=== PATIENT | male | born 1955 | race Caucasian/White ===

== ENCOUNTER 2016-09-04 14:00 | Emergency (ER) | payer MEDICARE, MEDICAID ==
[2016-09-04 14:28] LABS: BASOPHILS 0.1 % (0.0-2.0); EOSINOPHILS 0.2 % (0-7); HEMATOCRIT 42.2 % (42.0-54.0); HEMOGLOBIN 14.3 g/dL (13.5-17.5); IMMATURE GRANULOCYTES 0.2 % (0-5); MCH 31.6 pg (26.0-34.0); MCHC 33.9 g/dL (31.0-37.0); MCV 93.4 fL (80.0-100.0); MEAN PLATELET VOLUME 11.4 fL (7.4-10.4); MONOCYTES 12.2 % (2-11); NEUTROPHILS 61.3 % (40-80); PLATELET COUNT 240 10x3/uL (130-400); RBC 4.52 10x6/uL (4.20-6.10); WBC 10.7 10x3/uL (4.8-10.8)
[2016-09-04 14:49] LABS: ALBUMIN 4.5 g/dL (3.4-5.0); ALKALINE PHOSPHATASE 118 U/L (46-116); ALT (SGPT) 28 U/L (10-68); BILIRUBIN - TOTAL 0.51 mg/dL (0.2-1.3); CALC OSMOLALITY 279 mosm/kg (275-300); CALCIUM 9.3 mg/dL (8.5-10.1); CARBON DIOXIDE 28.8 mmol/L (21.0-32.0); CHLORIDE - SERUM 100 mmol/L (98-107); GLUCOSE 102 mg/dL (74-106); POTASSIUM - SERUM 4.4 mmol/L (3.5-5.1); PROTEIN - SERUM 7.6 g/dL (6.4-8.2); SODIUM 140 mmol/L (136-145); UREA NITROGEN 16 mg/dL (7-18); eGFR NON AFRICAN AMERICAN 81 mL/min (90-120)
== END 2016-09-04 17:18 | disposition home or self-care (01) ==
LOC: D.ER 14:00
PROVIDERS: Emergency Medicine
DX: J44.1 Chronic obstructive pulmonary disease with (acute) exacerbation (principal); J01.90 Acute sinusitis, unspecified; E11.9 Type 2 diabetes mellitus without complications; F17.200 Nicotine dependence, unspecified, uncomplicated

== ENCOUNTER 2017-08-13 21:35 | Emergency (ER) | payer OTHER, MEDICAID ==
[2017-08-13 22:15] LABS: BASOPHILS 0.1 % (0-2); EOSINOPHILS 2.1 % (0-7); HEMATOCRIT 41.8 % (42.0-54.0); HEMOGLOBIN 14.1 g/dL (13.5-17.5); IMMATURE GRANULOCYTES 0.8 % (0-5); LYMPHOCYTES 28.3 % (15-50); MCHC 33.7 g/dL (31.0-37.0); MCV 91.9 fL (80.0-100.0); MEAN PLATELET VOLUME 11.2 fL (7.4-10.4); MONOCYTES 8.8 % (2-11); NEUTROPHILS 59.9 % (40-80); PLATELET COUNT 222 10x3/uL (130-400); RBC 4.55 10x6/uL (4.20-6.10); RDW 14.2 % (11.5-14.5); WBC 7.6 10x3/uL (4.8-10.8)
[2017-08-13 22:45] LABS: ALBUMIN 3.9 g/dL (3.4-5.0); ANION GAP 15.5 mmol/L (8-16); BILIRUBIN - TOTAL 0.23 mg/dL (0.2-1.3); CARBON DIOXIDE 24.8 mmol/L (21.0-32.0); CREATININE - SERUM 1.1 mg/dL (0.6-1.3); POTASSIUM - SERUM 4.3 mmol/L (3.5-5.1); PROTEIN - SERUM 7.4 g/dL (6.4-8.2)
[2017-08-13 23:09] LABS: CREATINE KINASE 79 UL (21-232); LIPASE 195 U/L (73-393); PRO BNP 41 pg/mL (0-125)
[2017-08-13 23:10] LABS: TROPONIN-I < 0.017 ng/mL (0.000-0.060)
[2017-08-14 00:16] LABS: APPEARANCE CLEAR (CLEAR); BILIRUBIN NEGATIVE (NEGATIVE); COLOR YELLOW (YELLOW); GLUCOSE 500 mg/dL (NEGATIVE); KETONE NEGATIVE (NEGATIVE); NITRITE NEGATIVE (NEGATIVE); PROTEIN NEGATIVE (NEGATIVE); UROBILINOGEN NORMAL (NORMAL)
== END 2017-08-14 01:10 | disposition home or self-care (01) ==
LOC: D.ER 21:35
PROVIDERS: Family Medicine
DX: R42 Dizziness and giddiness (principal); J44.9 Chronic obstructive pulmonary disease, unspecified; E11.9 Type 2 diabetes mellitus without complications; I44.4 Left anterior fascicular block

== ENCOUNTER 2018-08-23 08:27 | Outpatient (CLI) | payer OTHER, MEDICAID ==
[~2018-08-23] VITALS: Ht 170.2 cm; Wt 69.1 kg
--- NOTE | ~2018-08-23 | HEMODYNAMI ---
PATIENT:CHRISTOPHER COSTA MEDICAL RECORD: [id number] : 55 LOCATION:DHermanCAT ADMISSION DATE: 08/23/18 Generatedon:08/23/201810:27 Patient name: CHRISTOPHER COSTA Patient #: [id number] SSN: : 1955 Date of study: 08/23/2018 Page: Of Hemodynamic Procedure Report Patient Data Patient Demographics Procedure consent was obtained First Name: CHRISTOPHER Gender: Male Last Name: IGOR : 1955 Middle Initial: GUS Age: 63 year(s) Patient #: [id number] Race: Unknown Additional ID: [id number] Contact details Address: [address] [place] [address] State: [place] City: [place] Zip code: [address] Past Medical History Allergies Allergen Reaction Date Comments Reported Other allergy 08/23/2018 MAILE GODOY TALWIN Admission Admission Data Admission Date: 08/23/2018 Admission Time: 8:27 Admit Source: Other Height (in.): 67 BSA: 1.82 (m2) Height (cm.): 170.18 BMI: 24.43 (kg/m2) Weight (lbs.): 156 Weight (kg.): 70.76 Lab Results Lab Result Date: 08/23/2018 Lab Result Time: 0:00 Biochemistry Name Units Result Min Max BUN mg/dl 23 --(----)-* 7 18 Creatinine mg/dl 1.1 --(--*-)-- 0.6 1.3 CBC Name Units Result Min Max Hemoglobin g/dl 15.1 --(-*--)-- 13.5 17.5 Procedure Procedure Types Cath Procedure Diagnostic Procedure [facility] w/Coronaries PCI Procedure Coronary Stent Coronary Stent Initial Procedure Description Procedure Date Procedure Date: 08/23/2018 Procedure Start Time: 10:13 Procedure End Time: 10:24 Procedure Staff Name Function Mark Lujan MD Performing Physician Yuli Avila RT Monitor Mayank Adler RT Scrub Eugenio Multani RT Business Technology Professor Alan Iglesias RN Nurse Procedure Data Cath Procedure Fluoroscopy Diagnostic fluoroscopy Total fluoroscopy Time: 1.9 time: 1.9 min min Diagnostic fluoroscopy Total fluoroscopy dose: 367 dose: 367 mGy mGy Contrast Material Contrast Material Type Amount (ml) Isovue 300 81 Entry Location Entry Primary Successful Side Size Upsize Upsize Entry Closure Rodriges ccessful Closure Location (Fr) 1 (Fr) 2 (Fr) Remarks Device Remarks Radial Right 6 Fr Mechanical artery Short Compression Estimated blood loss: 10 ml Diagnostic catheters Device Type Used For End Catheter Placement DIAGNOSTIC [place] 110cm 5 Procedure Fr catheter ([id number]) Procedure Complications No complications Procedure Medications Medication Administration Route Dosage Radial Cocktail I.A. 1 syringe (Verapomil 2mg/Nitro 400mcg/Heparin 1500units) Oxygen etCO2 Nasal cannula 2 l/min Lidocaine 2% added to field 20 Heparin Flush Bag added to field 2 bags (1000units/500ml NS) 0.9% NaCl I.V. 100 ml/hr Versed I.V. 2 mg Fentanyl I.V. 100 mcg Versed I.V. 1 mg Fentanyl I.V. 100 mcg Heparin Bolus I.V. 4000 units Integrilin (Bolus I.V. 6.2 ml 2mg/ml) Plavix P.O. 600 mg Hemodynamics Rest BSA: 1.82 (m2) O2 Consumption: Estimated: 212.07 (ml/min) O2 Consumption indexed : Estimated:116.52 (ml/min/m) Heart Rate: 69 (bpm) Snapshots Pre Cath Intra NCS Post Cath Vital Signs Time Heart Resp SPO2 etCO2 NIBP (mmHg) Rhythm Pain Sedation Rate (ipm) (%) (mmHg) Status Level (bpm) 10:05:39 71 20 97 36.4 110/59(80) NSR 0 (11) 10(A) , No pain 10:09:49 76 12 97 37.2 119/53(81) NSR 0 (11) 10(A) , No pain 10:13:59 72 20 96 44.8 127/69(104) NSR 0 (11) 10(A) , No pain 10:18:17 83 12 96 104/50(74) NSR 0 (11) 9(A) , No pain 10:22:23 84 16 96 105/63(81) NSR 0 (11) 9(A) , No pain 10:26:14 85 16 95 102/56(78) NSR 0 (11) 10(A) , No pain Medications Time Medication Route Dose Verified Delivered Reason Not es Effectiveness by by 10:05:23 Oxygen etCO2 2 l/min Mark Buffie used for Nasal Tai Iglesias RN procedure cannula 10:05:28 Lidocaine 2% added 20ml Mark Buffie for local to vial Tai Iglesias RN anesthetic field 10:05:34 Heparin Flush added 2 bags Mark Buffie used for Bag to Tai Iglesias RN procedure (1000units/500ml field NS) 10:10:43 0.9% NaCl I.V. 100 Mark Buffie Per physician ml/hr Tai Iglesias RN 10:11:50 Versed I.V. 2 mg Mark Martínezie for sedation Tai Iglesias RN 10:11:54 Fentanyl I.V. 100 mcg Mark Phillips for sedation Tai Iglesias RN 10:15:13 Radial Cocktail I.A. 1 Mark Flores for (Verapomil syringe Tai Lujan MD vasodilation 2mg/Nitro 400mcg/Heparin 1500units) 10:16:50 Versed I.V. 1 mg Mark Martínezie for sedation Tai Iglesias RN 10:16:54 Fentanyl I.V. 100 mcg Mark Phillips for sedation Tai Iglesias RN 10:19:28 Heparin Bolus I.V. 4000 Mark Phillips for units Tai Iglesias RN anticoagulation 10:20:16 Integrilin I.V. 6.2 ml Mark Phillips for (Bolus 2mg/ml) Tai Iglesias RN antiplatelet therapy 10:24:26 Plavix P.O. 600 mg Mark Phillips for Tai Iglesias RN antiplatelet therapy Procedure Log Time Note 9:41:23 Informed consent obtained and on chart 9:41:26 Admit Source: Other 9:41:42 Diagnostic Cath status Elective 9:41:43 Mayank Adler RT(R) sent for patient. Start room use. 9:41:44 Time tracking: Regular hours (M-F 7:00 - 5:00) 9:41:47 Plan of Care:Hemodynamics will remain stable., Cardiac rhythm will remain stable., Comfort level will be maintained., Respiratory function will remain adequate., Patient/ family verbilizes understanding of procedure., Procedure tolerated without complication., Recovers from procedure without complications.. 9:42:02 H&P Date Dictated: 08/17/2018 Within 30 days and on chart., H&P Addendum completed by physician on day of procedure. (MUST COMPLETE FOR ALL OUTPATIENTS). 9:47:05 Patient allergic to Other allergyCODEINE, PCN, TALWIN 9:47:12 Patient Height : 67 inches 9:47:15 Patient Weight : 156 lbs 9:50:21 Lab Result : BUN 23 mg/dl 9:50:21 Lab Result : Creatinine 1.1 mg/dl 9:50:21 Lab Result : Hemoglobin 15.1 g/dl 10:04:28 Patient received from Pre/Post Procedure Room to CCL 2 Alert and oriented. Tansferred to table in Supine position. 10:04:29 Warm blankets applied, and gio hugger turned on for patient comfort. 10:04:30 Correct patient and procedure confirmed by team. 10:04:30 ECG and BP/O2 sat monitors applied to patient. 10:04:31 Vital chart was started 10:04:32 Baseline sample Acquired. 10:04:35 Rhythm: sinus rhythm 10:04:36 Full Disclosure recording started 10:04:37 Pre-procedure instructions explained to patient. 10:04:38 Pre-op teaching completed and patient verbalized understanding. 10:04:40 Family in patients room. 10:04:43 Patient NPO since Midnight. 10:04:51 Is patient on blood thinner?No 10:04:54 Patient diabetic? Yes. 10:04:55 If diabetic: On Metformin? Yes 10:04:57 If on Metformin: Last Dose? 08/22/2018 10:05:01 Previous problem with sedation/anesthesia? No ? 10:05:03 Snore? Yes 10:05:05 Sleep apnea? No 10:05:06 Deviated septum? No 10:05:07 Opens mouth fully? Yes 10:05:08 Sticks out tongue? Yes 10:05:10 Airway obstruction? Yes COPD 10:05:15 Dentures? Yes IN TIGHT 10:05:18 Pre procedure: right dorsailis pedis pulse 2+ Normal; easily identifiable; not easily obliterated 10:05:20 Modified Julius's test Ulnar < 7 seconds 10:05:21 Patient pain scale 0/10 ?. 10:05:23 Oxygen 2 l/min etCO2 Nasal cannula was administered by Alan Iglesias RN; used for procedure; 10:05:27 IV patent on arrival in left hand with 0.9% NaCl at [facility]. 10:05:28 Lidocaine 2% 20ml vial added to field was administered by Alan Iglesias RN; for local anesthetic; 10:05:29 Lab results completed and on chart. 10:05:32 Right Radial & Right Groin area was prepped with chlora-prep and draped in sterile fashion 10:05:33 Alarms reviewed by R. N. 10:05:33 Sharps counted by scrub and verified by R.N. 10:05:34 Heparin Flush Bag (1000units/500ml NS) 2 bags added to field was administered by Alan Iglesias RN; used for procedure; 10:05:37 Use device set Radial Dx or PCI 10:05:38 ACIST Syringe (10509) opened to sterile field. 10:05:38 Bag Decanter (2002S) opened to sterile field. 10:05:40 ACIST Hand Control (47703) opened to sterile field. 10:05:40 ACIST Manifold (60629) opened to sterile field. 10:05:41 Tegaderm 4 x 4 (1626W) opened to sterile field. 10:05:42 Medline Cath Pack ([id number]) opened to sterile field. 10:05:42 DIAGNOSTIC WIRE .035 260cm J wire (970887) opened to sterile field. 10:05:43 MBrace Wrist Support ([id number]) opened to sterile field. 10:05:44 SHEATH 6FR Slender (43-9716) opened to sterile field. 10:08:20 --------ALL STOP TIME OUT------ 10:08:20 Final Timeout: patient, procedure, and site verified with staff and physician. All members of the team are in agreement. 10:08:23 Right Radial & Right Groin site verified by team. 10:08:26 Fire Safety Assessment: A--An alcohol-based skin anteseptic being used preoperatively., C--Open oxygen or nitrous oxide is being used., D--An ESU, laser, or fiber-optic light is being used. 10:08:29 Physical assessment completed. ASA score P 2 - A patient with mild systemic disease as per Mark Lujan MD. 10:08:31 Sedation plan: IV Moderate Sedation Medication:Versed, Fentanyl 10:10:43 0.9% NaCl 100 ml/hr I.V. was administered by Alan Iglesias RN; Per physician; 10:11:50 Versed 2 mg I.V. was administered by Alan Iglesias RN; for sedation; 10::54 Fentanyl 100 mcg I.V. was administered by Alan Iglesias RN; for sedation; 10:13:30 Zero performed for pressure channel P1 10:13:35 Procedure started. 10:13:44 Local anesthetic to right radial artery with Lidocaine 2% by Mark Lujan MD.INITIAL ACCESS ONLY 10:14:14 A 6 Fr Short sheath was inserted into the Right Radial artery 10::31 A DIAGNOSTIC [facility] 110cm 5 Fr catheter ([id number]) was advanced over the wire and used for Procedure. 10:15:08 LV gram done using KENNEDY 10:15:13 Radial Cocktail (Verapomil 2mg/Nitro 400mcg/Heparin 1500units) 1 syringe I.A. was administered by Mark Lujan MD; for vasodilation; 10:15:19 Injector settings: Ml/sec: 51, Volume: 5, 10:15:36 EF : 60 % 10:16:02 RCA angiography performed. 10:16:20 Catheter exchanged over wire. 10:16:50 Versed 1 mg I.V. was administered by Alan Iglesias RN; for sedation; 10:16:54 Fentanyl 100 mcg I.V. was administered by Alan Iglesias RN; for sedation; 10:17:00 GUIDE 6FR EBU 3.0 SH catheter ([id number]) opened to sterile field. 10:17:11 6 Fr EBU 3 SH guide catheter was inserted over the wire 10:17:59 LCA angiography performed. 10:18:08 CHOICE PT Extra Support 182cm wire ([id number]) opened to sterile field. 10:18:08 INFLATOR Merit BasixCompak (IR6670) opened to sterile field. 10:19:28 Heparin Bolus 4000 units I.V. was administered by Alan Iglesias RN; for anticoagulation; 10:19:45 CHOICE ES 182 wire advanced. 10:19:46 Wire advanced across lesion. 10:20:16 Integrilin (Bolus 2mg/ml) 6.2 ml I.V. was administered by Alan Iglesias RN; for antiplatelet therapy; 10:20:41 Place stent Inflation Number: 1 A INTEGRITY RX 3.0 x 12 stent ([id number]) was prepped and advanced across the Mid LAD. The stent was deployed at 13 KRISTINA for 0:10 (min:sec). 10:20:57 Stent catheter was removed intact over wire. 10:20:57 Wire removed. 10:20:58 Guide catheter removed. 10:21:10 Procedure ended.(Physican Out) 10:21:13 TR BAND Standard ([id number]) opened to sterile field. 10:22:32 Sheath removed intact; hemostasis achieved with Mechanical Compression to the Right Radial artery. 10:22:36 Fluoroscopy time 01.90 minutes. 10:22:50 Fluoroscopy dose: 367 mGy 10:22:50 Flurop Dose total: 367 10:22:53 Contrast amount:Isovue 300 81ml. 10:22:54 Sharps counted by scrub and verified by R.N. 10:22:56 TR band inflated with 11cc of air. 10:22:59 Post-procedure physical assessment completed. ASA score P 2 - A patient with mild systemic disease as per Mark Lujan MD. 10:23:03 Post procedure rhythm: sinus rhythm 10:23:09 Estimated blood loss: 10 ml 10:23:10 Post procedure instruction explained to patient.Patient verbalizes understanding. 10:23:11 Patient needs reinforcement of post procedure teaching. 10:23:31 Procedure type changed to Cath procedure, Diagnostic procedure, LHC, LHC w/Coronaries, PCI procedure, Coronary Stent, Coronary Stent Initial 10:24:14 Procedure and supply charges have been captured, reviewed, submitted and are correct. 10:24:16 Procedure Complication : No complications 10:24:26 Plavix 600 mg P.O. was administered by Alan Iglesias RN; for antiplatelet therapy; 10:24:27 Vital chart was stopped 10:24:28 See physician's report for complete and final results. 10:24:29 Report given to Pre/Post Procedure Room. 10:24:31 Patient transfered to Pre/Post Procedure Room with Bed. 10:24:33 Procedure ended. 10:24:33 Full Disclosure recording stopped 10:24:36 End room use (Document Last) Intervention Summary Intervention Notes Time ActionType Lesion and Equipment Action# Pressure Duration Attributes Used 10:20:41 Place stent Mid LAD INTEGRITY RX 1 13 00:10 3.0 x 12 stent ([id number]) Device Usage Item Name Manufacture Quantity Catalog Number Hospital Part Current Mini mal Lot# / Charge Number Stock Stock Serial# Code ACIST Acist 1 89123 213567 887637 718872 20 Syringe Medical (02939) Systems Inc Bag Decanter Microtek 1 2001S 617946 83709 048967 5 (2001S) Medical Inc. ACIST Hand Acist 1 78526 499017 592342 168395 5 Control Medical (71133) Systems Inc ACIST Acist 1 97932 750835 578143 964617 5 Manifold Medical (41799) Systems Inc Tegaderm 4 x 3M 1 1626W 805999 351789 317845 5 4 (1626W) Medline Cath Medline 1 [id number] 506802 68965 066897 5 Pack ([id number]) DIAGNOSTIC St Jose 1 153267 385506 949834 182667 30 WIRE .035 260cm J wire (471510) MBrace Wrist Advanced 1 140-0250-00 670694 16863 880350 5 Support Vascular ([id number]) Dynamics SHEATH 6FR Terumo 1 [id number] 527282 767620 649736 5 Slender (80-1060) DIAGNOSTIC Terumo 1 40-5013 693173 208872 674240 5 [facility] [place] 110cm 5 Fr catheter (644558) GUIDE 6FR Medtronic 1 [id number] 211464 20501 551778 0 EBU 3.0 SH catheter ([id number]) CHOICE PT [place] 1 [id number] 341573 948637 028561 5 Extra Scientific Support 182cm wire ([id number]) INFLATOR Merit 1 VJ1372 959614 552215 626601 15 Merit Medical BasixCompak (MV1743) INTEGRITY RX Medtronic 1 [id number] 082395 015663 904115 5 [id number] 3.0 x 12 stent ([id number]) TR BAND Terumo 1 [id number] 293158 277821 573645 40 Standard ([id number]) Signature Audit [place] Stage Time Signature Unsigned Intra-Procedure 08/23/2018 Yuli Avila 10:26:56 AM RT(R) Signatures Monitor : Yuli Avila Signature : RT Date : Time : [place] [id number]
[2018-08-23] MEDS ORDERED: FARXIGA10 MG PO (08:48)
[2018-08-23] MEDS ORDERED: GEMFIBROZIL600 MG PO (08:48)
[2018-08-23] MEDS ORDERED: NEURONTIN600 MG PO (08:48)
[2018-08-23] MEDS ORDERED: PRAVACHOL40 MG PO (08:48)
[2018-08-23] MEDS ORDERED: TOPROL XL50 MG PO (08:49)
[2018-08-23] MEDS ORDERED: PROTONIX40 MG PO (08:49)
[2018-08-23] MEDS ORDERED: ALBUTEROL SULF8.5 GM INH (08:49)
[2018-08-23] MEDS ORDERED: GLUCOPHAGE1000 MG PO (08:49)
[2018-08-23] MEDS ORDERED: PIOGLITAZONE15 MG PO (08:49)
[2018-08-23 09:01] VITALS: BP 129/64; Ht 170.2 cm; Wt 69.1 kg
[2018-08-23 09:07] LABS: BASOPHILS 0.1 % (0-2); EOSINOPHILS 1.4 % (0-7); HEMATOCRIT 44.6 % (42.0-54.0); HEMOGLOBIN 15.1 g/dL (13.5-17.5); IMMATURE GRANULOCYTES 0.4 % (0-5); LYMPHOCYTES 33.4 % (15-50); MCH 31.1 pg (26.0-34.0); MCHC 33.9 g/dL (31.0-37.0); MEAN PLATELET VOLUME 11.1 fL (7.4-10.4); MONOCYTES 9.5 % (2-11); NEUTROPHILS 55.2 % (40-80); PLATELET COUNT 218 10x3/uL (130-400); RBC 4.85 10x6/uL (4.20-6.10); RDW 15.5 % (11.5-14.5); WBC 7.3 10x3/uL (4.8-10.8)
[2018-08-23 09:48] LABS: ANION GAP 18.5 mmol/L (8-16); CALCIUM 9.2 mg/dL (8.5-10.1); CARBON DIOXIDE 24.4 mmol/L (21.0-32.0); CREATININE - SERUM 1.1 mg/dL (0.6-1.3); POTASSIUM - SERUM 3.9 mmol/L (3.5-5.1)
[2018-08-23] MEDS ORDERED: PLAVIX75 MG PO (10:39)
[2018-08-23] MEDS ORDERED: BAYER CHEWABLE81 MG PO (10:39)
--- NOTE | 2018-08-23 10:50 | NUR ---
PT RESTING COMFORTABLY. RIGHT RADIAL TR BAND IN PLACE. NO BLEEDING/HEMATOMA NOTED. VSS. CAP REFILL < 3 SECS TO RIGHT HAND. FAMILY AT BEDSIDE.
--- NOTE | 2018-08-23 11:20 | NUR ---
RIGHT WRIST TR BAND CDI, NO BLEEDING OR HEMATOMA NOTED. 2L NC WITH NO RESP DISTRESS. NO C/O PAIN OR NAUSEA. VSS. WILL CONTINUE TO MONITOR.
--- NOTE | 2018-08-23 11:35 | NUR ---
SIPPING ON DRINK AND EATING SANDWICH WITH NO C/O NAUSEA. RIGHT WRIST TR BAND CDI, NO BLEEDING OR HEMATOMA NOTED. DENIES ANY NEEDS. VSS. CALL LIGHT WITHIN REACH.
--- NOTE | 2018-08-23 11:46 | OP ---
PATIENT NAME: CHRISTOPHER COSTA MEDICAL RECORD: [id number] :55 LOCATION:D.CAT ADMISSION DATE: SURGEON: NIDA METCALF MD DATE OF OPERATION: 08/23/2018 DATE OF SERVICE: 08/23/2018 PROCEDURES: 1. PTCA stent LAD. 2. Left heart catheterization. 3. Selective coronary angiography. 4. Left ventriculogram. INDICATION: Chest pain compatible with angina and coronary artery disease. PROCEDURE IN DETAIL: After informed consent was obtained and after a detailed description of risks, benefits as well as alternative therapies, the patient elected to proceed with angiogram and angioplasty. The right radial area was prepped and draped in normal sterile fashion. Right radial artery was cannulated via modified Seldinger technique with placement of 6-Hungarian sheath. All catheters exchanged through this sheath. FINDINGS: The left ventriculogram was performed in standard 30-degree KENNEDY view, reveals good cardiac wall motion throughout all segments. Overall ejection fraction estimated at 50%. SELECTIVE CORONARY ANGIOGRAPHY: 1. Left main is with no significant angiographic disease. 2. Left anterior descending has 80% to 90% stenosis in the proximal vessel. 3. Left circumflex is large, dominant with no significant disease. 4. Right coronary is small, nondominant with no significant disease. PTCA STENT OF THE LAD: The stent used was a 3.0 x12-mm Integrity. Result was 0% residual stenosis. OVERALL IMPRESSION: Successful percutaneous transluminal coronary angioplasty stent of the left anterior descending going from 80% to 90% initial stenosis to 0% residual. TRANSINT:[id number] Voice Confirmation ID: [id number] DOCUMENT ID: [id number] NIDA METCALF MD at 1146 CC: [id number] DICTATION DATE: 08/23/18 1025 INTERNAL MEDICINE DOCTOR: 08/23/18 1048 [facility] [address] [place] [address]
--- NOTE | 2018-08-23 12:05 | NUR ---
RESTING QUIETLY WITH EYES CLOSED. RIGHT WRIST TR BAND CDI, NO BLEEDING OR HEMATOMA NOTED. DENIES ANY NEEDS OR C/O. VSS. CALL LIGHT WITHIN REACH.
--- NOTE | 2018-08-23 12:35 | NUR ---
VOIDED 550CC INTO URINAL. RIGHT WRIST TR BAND CDI, NO BLEEDING OR HEMATOMA NOTED. VSS. WILL CONTINUE TO MONITOR CLOSELY.
--- NOTE | 2018-08-23 13:35 | NUR ---
3CC OF AIR REMOVED FROM TR BAND WITH NO BLEEDING NOTED. VSS. WILL CONTINUE TO MONITOR CLOSELY.
--- NOTE | 2018-08-23 13:52 | NUR ---
3CC OF AIR REMOVED FROM TR BAND WITH NO BLEEDING NOTED.
--- NOTE | 2018-08-23 14:10 | NUR ---
2CC OF AIR REMOVED FROM TR BAND WITH N OBLEEDING NOTED. LEFT PIV D/C'D WITH CATHETER INTACT, BAND AID TO SITE. UP TO BEDSIDE TO GET DRESSED.
--- NOTE | 2018-08-23 14:20 | NUR ---
REMAINING AIR REMOVED FROM TR BAND WITH NO BLEEDING NOTED. DRESSING PLACED TO SITE. DISCHARGE INSTRUCTIONS GIVEN ALONG WITH PRESCRIPTION FOR PLAVIX. VERBALIZED UNDERSTANDING.
--- NOTE | 2018-08-23 14:30 | NUR ---
TAKEN OUT VIA WHEELCHAIR BY CATH MEDICAL AIDE. LEFT FACILITY WITH FAMILY AND ALL PERSONAL BELONGINGS.
== END 2018-08-23 14:30 | disposition home or self-care (01) ==
LOC: D.CATH 08:27
PROVIDERS: Internal Medicine Interventional Cardiology
DX: I25.119 Atherosclerotic heart disease of native coronary artery with unspecified angina pectoris (principal); Z01.812 Encounter for preprocedural laboratory examination

== ENCOUNTER → 2018-09-20 14:39 | Outpatient (CLI) | payer OTHER, MEDICAID ==
[2018-08-23 09:01] VITALS: BMI 23.8
[~2018-09-20 14:39] MED LIST: ALBUTEROL SULF8.5 GM INH; BAYER CHEWABLE81 MG PO; FARXIGA10 MG PO; GEMFIBROZIL600 MG PO; GLUCOPHAGE1000 MG PO; NEURONTIN600 MG PO; PIOGLITAZONE15 MG PO; PLAVIX75 MG PO; PRAVACHOL40 MG PO; PROTONIX40 MG PO; TOPROL XL50 MG PO
== END | disposition home or self-care (01) ==
LOC: D.CT 14:39
PROVIDERS: ATTEND Family Medicine
DX: R10.32 Left lower quadrant pain (principal)

== ENCOUNTER → 2018-09-23 09:36 | Outpatient (CLI) | payer OTHER ==
[2018-08-23 09:01] VITALS: BMI 23.8
== END | disposition home or self-care (01) ==
LOC: D.US 09:36
PROVIDERS: ATTEND Family Medicine
DX: N28.1 Cyst of kidney, acquired (principal)

== ENCOUNTER → 2018-10-07 08:17 | Outpatient (CLI) | payer OTHER ==
[2018-08-23 09:01] VITALS: BMI 23.8
== END | disposition home or self-care (01) ==
LOC: D.MRI 08:17
PROVIDERS: ATTEND Family Medicine
DX: N28.9 Disorder of kidney and ureter, unspecified (principal)

== ENCOUNTER → 2018-12-24 12:22 | Outpatient (CLI) | payer OTHER ==
[2018-08-23 09:01] VITALS: BMI 23.8
== END | disposition home or self-care (01) ==
LOC: D.CT 12:22
PROVIDERS: ATTEND Radiology Diagnostic Radiology
DX: N28.89 Other specified disorders of kidney and ureter (principal)

== ENCOUNTER 2019-01-10 11:06 | Observation (INO) | payer OTHER ==
[~2019-01-10] VITALS: Ht 170.2 cm; Wt 65.9 kg
--- NOTE | ~2019-01-10 | OP ---
PATIENT NAME: CHRISTOPHER COSTA MEDICAL RECORD: [id number] :55 LOCATION:D.M2 D.2113 ADMISSION DATE:01/10/19 SURGEON: NIDA METCALF MD DATE OF OPERATION: 01/11/2019 DATE OF SERVICE: 01/11/2019 PROCEDURES: 1. PTCA stent LAD. 2. Left heart catheterization. 3. Selective coronary angiography. 4. Left ventriculogram. INDICATION: Unstable angina and coronary artery disease. PROCEDURE IN DETAIL: After informed consent was obtained and after a detailed explanation of risks, benefits as well as alternative therapies, the patient elected to proceed with angiogram and angioplasty. The right femoral area was prepped and draped in normal sterile fashion. Right femoral artery was cannulated via modified Seldinger with placement of 6-Azeri sheath. All catheters exchanged through this sheath. FINDINGS: Left ventriculogram was performed in the standard 30-degree KENNEDY view reveals good cardiac wall motion throughout all segments. Overall ejection fraction estimated at 60%. SELECTIVE CORONARY ANGIOGRAPHY: 1. Left main is with no significant angiographic disease. 2. Left anterior descending has previously placed stent with 95% in-stent restenosis. 3. Left circumflex has moderate irregularities, but no flow-limiting stenosis. 4. Right coronary has moderate irregularities, but no flow-limiting stenosis. PTCA STENT OF THE LAD: The stent used was a 3.0 x 15 mm [place]. Result was 0% residual stenosis. OVERALL IMPRESSION: Successful percutaneous transluminal coronary angioplasty stent of the left anterior descending going from 95% initial stenosis to 0% residual. TRANSINT:[id number] Voice Confirmation ID: [id number] DOCUMENT ID: [id number] NIDA METCALF MD CC: [id number] DICTATION DATE: 01/11/19 1034 AUTOMOTIVE TIRE TESTING SUPERVISOR: 01/11/19 1114 ADM IN [facility] [address] [place] [address]
--- NOTE | ~2019-01-10 | EC ---
PATIENT:CHRISTOPHER COSTA DATE OF SERVICE: 01/10/19 SEX: M MEDICAL RECORD: [id number] DATE OF : 55 LOCATION:D.M2 D.211 AGE OF PATIENT: 63 ADMISSION DATE: 01/10/19 REFERRING PHYSICIAN: INTERPRETING PHYSICIAN: NIDA LUJAN MD ECHOCARDIOGRAM REPORT ECHO CHARGES 4 ECHO COMPLETE Date: 01/10/19 CLINICAL DIAGNOSIS: CHEST PAIN CAD/STENT ECHOCARDIOGRAPHIC MEASUREMENTS (adult normal given) AC root (d.<3.7cm) 3.0 cm LV Septum d (<1.2 cm> 1.2 cm Valve Excursion 1.4 cm LV Septum (systole) 1.5 cm Left Atria (s.<4.0cm> 3.5 cm LVPW d(<1.2cm) 1.2 cm RV (d.<2.3cm) 3.2 cm LVPW (sytole) 1.5 cm LV diastole(<5.6CM) 4.9 cm MV E-F(>70mm/sec) cm LV systole 3.8 cm LVOT Diameter 1.8 cm MV exc.(>10mm) 1.8 cm Est.ejection fraction (50-75%) % DOPPLER: LVIT cm/sec A 76.0 cm/sec E 80.0 cm/sec LA cm/sec RVSP 42 mmHg LVOT 87 cm/sec AOP1/2T m/s Asc. Ao 121 cm/sec RVOT 73 cm/sec RA cm/sec PA 114 cm/sec AV Gradient Peak 5.82 mmHg AV Mean 3.26 mmHg AV Area 1.82 cm MV Gradient Peak 4.52 mmHg MV Mean 1.83 mmHg MV Area cm COMMENTS: Fur Dressing Supervisor: Mellissa AMEZQUITA Private Sector Executive: 1 Dr. Lujan TAPE# PACS Pericardial Effusion N DATE OF SERVICE: 01/10/2019 PROCEDURE: Echocardiogram. FINDINGS: 1. Left ventricular chamber size is within normal limits. Left ventricular systolic function is normal. Overall ejection fraction estimated at 60%. 2. Left atrium is within normal limits at 3.5 cm. Right atrium and right ventricle chamber sizes are mildly dilated. 3. Valvular structures have normal structure and motion. ECHOCARDIOGRAM REPORT [id number] CHRISTOPHER COSTA 4. Doppler interrogation reveals mild mitral regurgitation, mild tricuspid regurgitation, no other valvular insufficiency or stenosis. Pulmonary systolic pressure is estimated 42 mmHg. 5. No evidence of pericardial effusion or left ventricular thrombus. TRANSINT:[id number] Voice Confirmation ID: [id number] DOCUMENT ID: [id number] NIDA LUJAN MD CC: [id number] DICTATION DATE: 01/11/19642 KNIT GOODS CUTTER HAND: 01/11/19822 ADM IN [facility] [address] [place] [id number]
--- NOTE | ~2019-01-10 | HP ---
PATIENT: CHRISTOPHER COSTA MEDICAL RECORD: [id number] ACCOUNT: [id number] LOCATION:.[facility].2113 : 55 ADMISSION DATE: 01/10/19 PCP: ELIZ SZYMANSKI DO HISTORY AND PHYSICAL EXAMINATION DIAGNOSES: 1. Angina. 2. Coronary artery disease. 3. PTCA and stent, August. 4. Hypertension. 5. Hyperlipidemia. 6. Noninsulin-dependent diabetes. 7. COPD. 8. Smoking. HISTORY OF PRESENT ILLNESS: This is a gentleman known to us with PTCA and stent of the LAD in July, who presents with 2-3 weeks of increasing chest pain, just like that of his previous angina. He had multiple episodes of the chest pain today. He is currently pain free. His EKG is with no ST-T abnormalities. Troponin is normal. Currently, his heart rate is in 70s and systolic blood pressure is 101; hence, there is no room for increasing medical management. At this time, he is on Lopressor 50 mg b.i.d. PHYSICAL EXAMINATION: GENERAL APPEARANCE: Well-nourished, well-developed, appears stated age. Level of distress, comfortable. PSYCHIATRIC: Mental status, alert, normal affect. Orientation, oriented to time, place and person. EYES: Lids and conjunctiva, noninjected. No discharge, no pallor. ENT: Lips, teeth, gums, normal dentition. Oropharynx, no cyanosis, no pallor. NECK: Carotid arteries, bilateral normal upstroke, no bruits, no thrills. JUGULAR VEINS: No jugular venous pressure or distention. CERVICAL LYMPH NODES: Nontender, nonenlarged. THYROID: Not enlarged. Nontender. No nodules. LUNGS: Respiratory effort, unlabored. CHEST: Normal curvature. No thoracic deformity. No chest wall tenderness. Percussion, resonant. Auscultation, clear. No wheezes, no rales, no rhonchi. CARDIOVASCULAR: Precordial exam, nondisplaced. No heaves or pericardial thrills. Rate and rhythm, regular. Heart sounds, normal S1, normal S2. No S3, no gallop, no rub. Systolic murmur, not heard. Diastolic murmur, not heard. EXTREMITIES: No cyanosis, no edema. Peripheral pulses, full and equal in all extremities, except as noted. No bruits appreciated. ABDOMEN: Soft, nondistended. Normal aorta. No bruit. Nontender. No masses. Liver, nontender, no hepatomegaly. Spleen, nontender, no splenomegaly. MUSCULOSKELETAL: No joint tenderness. No joint swelling. No erythema. NEUROLOGICAL: Normal gait, normal strength, normal tone. SKIN: Warm and dry. OVERALL IMPRESSION: Chest pain in an increasing unstable fashion, but a normal EKG. We will proceed with risk stratification with stress testing with Cardiolite imaging. Further care depends upon findings of the stress test. TRANSINT:[id number] Voice Confirmation ID: [id number] DOCUMENT ID: [id number] 01/11/2019 Changed to H&P per ros Love. HISTORY AND PHYSICAL [id number] CHIRSTOPHER COSTA JEFFREY MD CC: [id number] DICTATION DATE: 01/10/19 1154 HOLDER PILE DRIVING: 01/10/[address] [facility] [address] [id number]
--- NOTE | ~2019-01-10 | HEMODYNAMI ---
PATIENT:CHRISTOPHER COSTA MEDICAL RECORD: [id number] : 55 [id number] ADMISSION DATE: 01/10/19 Generatedon:01/11/201910:33 Patient name: CHRISTOPHER COSTA Patient #: [id number] SSN: : 1955 Date of study: 01/11/2019 Page: Of Hemodynamic Procedure Report Patient Data Patient Demographics Procedure consent was obtained First Name: CHRISTOPHER Gender: Male Last Name: IGOR : 1955 Middle Initial: LEROY Age: 63 year(s) Patient #: [id number] Race: Unknown Additional ID: [id number] Contact details [address]: [address] [place] [address] State: [place] City: [place] Zip code: [address] Past Medical History Allergies Allergen Reaction Date Comments Reported Other allergy 08/23/2018 MAILE GODOY TALWIN Other allergy 01/11/2019 JAYNE GR TALWIN Admission Admission Data Admission Date: 01/10/2019 Admission Time: 12:11 Room #: D.2113 Lab Results Lab Result Date: 01/11/2019 Lab Result Time: 0:00 Biochemistry Name Units Result Min Max BUN mg/dl 19 --(----)*- 7 18 Creatinine mg/dl 1.1 --(--*-)-- 0.6 1.3 eGFR ml/min 72 *-(----)-- 90 120 NONAFRICAN CBC Name Units Result Min Max Hematocrit % 41.3 -*(----)-- 42 54 Hemoglobin g/dl 14 --(*---)-- 13.5 17.5 Procedure Procedure Types Cath Procedure Diagnostic Procedure [facility] w/Coronaries PCI Procedure Coronary Stent Coronary Stent Initial Procedure Description Procedure Date Procedure Date: 01/11/2019 Procedure Start Time: 10:19 Procedure End Time: 10:30 Procedure Staff Name Function Mark Lujan MD Performing Physician Yuli Avila RT Monitor Mark Munoz RT Scrub Leroy Daugherty RN Nurse Procedure Data Cath Procedure Fluoroscopy Diagnostic fluoroscopy Total fluoroscopy Time: 2 time: 2 min min Diagnostic fluoroscopy Total fluoroscopy dose: 352 dose: 352 mGy mGy Contrast Material Contrast Material Type Amount (ml) Isovue 300 66 Entry Location Entry Primary Successful Side Size Upsize Upsize Entry Closure Succes sful Closure Location (Fr) 1 (Fr) 2 (Fr) Remarks Device Remarks Femoral Right 5 Fr 6 Fr Exoseal artery Short Estimated blood loss: 10 ml Diagnostic catheters Device Type Used For End Catheter Placement MULTIPACK Pigtail 5 Fr Procedure catheter MULTIPACK JL 4.0 5Fr Procedure catheter MULTIPACK 3DRC 5Fr Procedure catheter Procedure Complications No complications Procedure Medications Medication Administration Route Dosage 0.9% NaCl I.V. 100 ml/hr Oxygen etCO2 Nasal cannula 2 l/min Heparin Flush Bag added to field 2 bags (1000units/500ml NS) Lidocaine 2% added to field 20 Versed I.V. 2 mg Fentanyl I.V. 100 mcg Fentanyl I.V. 50 mcg Heparin Bolus I.V. 4000 units Integrilin (Bolus I.V. 6.2 ml 2mg/ml) Integrilin (Bolus wasted 3.8 ml 2mg/ml) Hemodynamics Rest HGB: 14 (g/dl) Heart Rate: 69 (bpm) Snapshots Pre Cath Intra NCS Post Cath Vital Signs Time Heart Resp SPO2 etCO2 NIBP (mmHg) Rhythm Pain Sedation Rate (ipm) (%) (mmHg) Status Level (bpm) 9:54:10 71 17 95 0 135/68(100) NSR 0 (11) 10(A) , No pain 9:58:26 73 15 96 28.5 114/59(93) NSR 0 (11) 10(A) , No pain 10:02:34 68 16 96 23.9 114/61(84) NSR 0 (11) 10(A) , No pain 10:06:41 63 20 97 36 107/59(84) NSR 0 (11) 10(A) , No pain 10:10:45 66 15 96 23.2 119/62(88) NSR 0 (11) 10(A) , No pain 10:14:51 63 19 96 41.2 136/67(118) NSR 0 (11) 10(A) , No pain 10:19:03 64 13 96 45 139/66(96) NSR 0 (11) 9(A) , No pain 10:23:17 66 13 96 45.7 126/64(93) NSR 0 (11) 9(A) , No pain 10:27:27 75 22 96 42 125/63(105) NSR 0 (11) 9(A) , No pain Medications Time Medication Route Dose Verified Delivered Reason Notes Effectiveness by by 9:55:21 0.9% NaCl I.V. 100 Leroy Leroy Per physician ml/hr Dat Daugherty RN RN 9:55:31 Oxygen etCO2 2 Leroy Leroy for low 02 sats Nasal l/min Dat Daugherty cannula RN RN 9:55:41 Heparin Flush added 2 Leroy Leroy used for Bag to bags Dat Daugherty procedure (1000units/500ml field RN RN NS) 9:55:51 Lidocaine 2% added 20ml Leroy Leroy for local to vial Dat Daugherty anesthetic field RN RN 10:18:18 Versed I.V. 2 mg Leroy Leroy for sedation Dat Daugherty RN RN 10:18:26 Fentanyl I.V. 100 Leroy Leroy for sedation mcg Dat Daugherty RN RN 10:20:00 Fentanyl I.V. 50 Leroy Leroy for sedation mcg Dat Daugherty RN RN 10:25:12 Heparin Bolus I.V. 4000 Leroy Leroy for units Dat Daugherty anticoagulation RN RN 10:25:29 Integrilin I.V. 6.2 Leroy Leroy for (Bolus 2mg/ml) ml Dat Daugherty antiplatelet RN RN therapy 10:25:39 Integrilin wasted 3.8 Leroy Leroy to sharp's (Bolus 2mg/ml) ml Dat Daugherty RN basin cleaner Log Time Note 9:30:18 Signed procedure consent form obtained from patient. 9:30:20 Diagnostic Cath status Urgent 9:30:21 Time tracking: Regular hours (M-F 7:00 - 5:00) 9:30:25 Plan of Care:Hemodynamics will remain stable., Cardiac rhythm will remain stable., Comfort level will be maintained., Respiratory function will remain adequate., Patient/ family verbilizes understanding of procedure., Procedure tolerated without complication., Recovers from procedure without complications.. 9:31:54 Patient allergic to Other allergyPCN, CODEINE, TALWIN 9:34:40 Lab Result : Creatinine 1.1 mg/dl 9:34:40 Lab Result : BUN 19 mg/dl 9:34:40 Lab Result : eGFR NONAFRICAN 72 ml/min 9:34:40 Lab Result : Hemoglobin 14 g/dl 9:34:40 Lab Result : Hematocrit 41.3 % 9:35:35 Leroy Daugherty RN sent for patient. Start room use. 9:45:06 Patient received from Med II to CCL 2 Alert and oriented. Tansferred to table in Supine position. 9:45:07 Warm blankets applied, and gio hugger turned on for patient comfort. 9:45:07 Correct patient and procedure confirmed by team. 9:45:08 ECG and BP/O2 sat monitors applied to patient. 9:52:53 Vital chart was started 9:54:19 Baseline sample Acquired. 9:54:22 Rhythm: sinus rhythm 9:54:22 Full Disclosure recording started 9:54:23 Pre-procedure instructions explained to patient. 9:54:24 Pre-op teaching completed and patient verbalized understanding. 9:54:25 Family unavailable. 9:54:32 Is patient on blood thinner?Yes 9:54:41 PT PRELOADED PLAVIX 9:54:43 Patient diabetic? Yes. 9:54:44 If diabetic: On Metformin? Yes 9:54:46 If on Metformin: Last Dose? 01/10/2019 9:54:50 Previous problem with sedation/anesthesia? No ? 9:54:51 Snore? Yes 9:54:52 Sleep apnea? Yes 9:54:52 Deviated septum? No 9:54:53 Opens mouth fully? Yes 9:54:54 Sticks out tongue? Yes 9:54:56 Airway obstruction? Yes COPD 9:54:59 Dentures? Yes IN 9:55:02 Pre procedure: right dorsailis pedis pulse 1+ Palpable, but thready & weak; easily obliterated 9:55:04 Patient pain scale 0/10 ?. 9:55:08 IV patent on arrival in right wrist with 0.9% NaCl at KVO. 9:55:10 Lab results completed and on chart. 9:55:12 Right groin area was prepped with chlora-prep and draped in sterile fashion 9:55:17 Alarms reviewed by Maira N. 9:55:17 Sharps counted by scrub and verified by R.N. 9:55:20 Use device set Femoral Dx 9:55:21 0.9% NaCl 100 ml/hr I.V. was administered by Leroy Daugherty RN; Per physician; 9:55:21 ACIST Syringe (81793) opened to sterile field. 9:55:22 Bag Decanter (2002S) opened to sterile field. 9:55:23 ACIST Hand Control (25388) opened to sterile field. 9:55:23 ACIST Manifold (51509) opened to sterile field. 9:55:24 Tegaderm 4 x 4 (1626W) opened to sterile field. 9:55:27 Medline Cath Pack ([id number]) opened to sterile field. 9:55:28 DIAGNOSTIC Multipack 5Fr catheter set (OO3154) opened to sterile field. 9:55:29 SHEATH 5FR [place] (HGC681) opened to sterile field. 9:55:29 EMERALD Guide Wire (398-124) opened to sterile field. 9:55:31 Oxygen 2 l/min etCO2 Nasal cannula was administered by Leroy Daugherty RN; for low 02 sats; 9:55:41 Heparin Flush Bag (1000units/500ml NS) 2 bags added to field was administered by Leroy Daugherty RN; used for procedure; 9:55:51 Lidocaine 2% 20ml vial added to field was administered by Leroy Daugherty RN; for local anesthetic; 10:15:27 Zero performed for pressure channel P1 10:17:06 --------ALL STOP TIME OUT------ 10:17:07 Final Timeout: patient, procedure, and site verified with staff and physician. All members of the team are in agreement. 10:17:08 Right groin site verified by team. 10:17:11 Fire Safety Assessment: A--An alcohol-based skin anteseptic being used preoperatively., C--Open oxygen or nitrous oxide is being used., D--An ESU, laser, or fiber-optic light is being used. 10:17:13 Physical assessment completed. ASA score P 2 - A patient with mild systemic disease as per Mark Lujan MD. 10:17:18 2) 60-89 Mildly reduced kidney function, and other findings (as for stage 1) point to kidney disease. 10:17:22 Maximum allowable contrast does (3.7 X eGFR X 0.75)200 ml. 10:17:25 Sedation plan: IV Moderate Sedation Medication:Versed, Fentanyl 10:18:18 Versed 2 mg I.V. was administered by Leroy Daugherty RN; for sedation; 10::26 Fentanyl 100 mcg I.V. was administered by Leroy Daugherty RN; for sedation; 10:19:20 Procedure started. 10::28 Local anesthetic to right femoral artery with Lidocaine 2% by Mark Lujan MD.INITIAL ACCESS ONLY 10:20:00 Fentanyl 50 mcg I.V. was administered by Leroy Daugherty RN; for sedation; :: A 5 Fr sheath was inserted into the Right Femoral artery 10::31 A MULTIPACK Pigtail 5 Fr catheter was advanced over the wire and used for Procedure. 10:21:02 LV gram done using KENNEDY 10::18 Injector settings: Ml/sec: 10, Volume: 20, 10:21:23 EF : 60 % 10:21:24 Catheter removed. 10:21:30 A MULTIPACK JL 4.0 5Fr catheter was advanced over the wire and used for Procedure. 10:22:20 LCA angiography performed. 10:22:24 Catheter removed. 10:22:29 A MULTIPACK 3DRC 5Fr catheter was advanced over the wire and used for Procedure. 10:23:00 RCA angiography performed. 10:23:04 Catheter removed. 10:23:24 SHEATH 6FR [place] (DQV575) opened to sterile field. 10:23:25 INFLATOR Merit BasixCompak (SP2987) opened to sterile field. 10:23:25 CHOICE PT Extra Support 182cm wire ([id number]) opened to sterile field. 10:23:25 GUIDE 6FR XBLAD 3.5 catheter ([id number]) opened to sterile field. 10:23:40 Sheath upsized to a 6 Fr Short. 10:24:30 6 Fr XBLAD 3.5 guide catheter was inserted over the wire 10:25:12 Heparin Bolus 4000 units I.V. was administered by Leroy Daugherty RN; for anticoagulation; 10::29 Integrilin (Bolus 2mg/ml) 6.2 ml I.V. was administered by Leroy Daugherty RN; for antiplatelet therapy; 10:25:35 CHOICE ES 182 wire advanced. 10::39 Integrilin (Bolus 2mg/ml) 3.8 ml wasted was administered by Leroy Daugherty RN; to sharp's; 10:26:21 Wire advanced across lesion. 10:26:24 Place stent Inflation Number: 1 A SHERRON RX 3.0 x 15 stent ([id number]) was prepped and advanced across the Mid LAD 95. The stent was deployed at 17 KRISTINA for 0:00 (min:sec) 0. 10:26:46 Stent catheter was removed intact over wire. 10::46 Wire removed. 10::47 Guide catheter removed. 10:27:14 EXOSEAL 6Fr (EX600) opened to sterile field. 10:27:24 Sheath removed intact; hemostasis achieved with Exoseal to the Right Femoral artery. 10:27:25 Procedure ended.(Physican Out) 10:29:24 Fluoroscopy time 02.00 minutes. 10::27 Fluoroscopy dose: 352 mGy 10:29:27 Flurop Dose total: 352 10:29:31 Contrast amount:Isovue 300 66ml. 10:29:32 Sharps counted by scrub and verified by R.N. 10:29:35 Post-op/insertion site Right Femoral artery dressed using a 4 x 4 and Tegaderm. 10:29:38 Post-procedure physical assessment completed. ASA score P 2 - A patient with mild systemic disease as per Mark Lujan MD. 10:29:40 Post procedure rhythm: sinus rhythm 10::44 Estimated blood loss: 10 ml 10:29:45 Post procedure instruction explained to patient.Patient verbalizes understanding. 10:29:45 Patient needs reinforcement of post procedure teaching. 10:29:59 Procedure type changed to Cath procedure, Diagnostic procedure, LHC, LHC w/Coronaries, PCI procedure, Coronary Stent, Coronary Stent Initial 10:30:16 Procedure and supply charges have been captured, reviewed, submitted and are correct. 10:30:18 Procedure Complication : No complications 10:30:20 Vital chart was stopped 10:30:20 See physician's report for complete and final results. 10:30:21 Report given to Pre/Post Procedure Room. 10:30:24 Patient transfered to Pre/Post Procedure Room with Bed. 10:30:26 Procedure ended. 10:30:26 Full Disclosure recording stopped 10:30:30 End room use (Document Last) Intervention Summary Intervention Notes Time ActionType Lesion and Equipment Used Action# Pressure Duration Attributes 10:26:24 Place stent Mid LAD SHERRON RX 3.0 x 1 17 00:00 15 stent ([id number]) Device Usage Item Name Manufacture Quantity Catalog Number Hospital Part Current M inimal Lot# / Charge Number Stock Stock Serial# Code ACIST Syringe Acist 1 75286 963735 819147 723628 2 0 (57965) Medical Systems Inc Bag Decanter Microtek 1 2001S 705251 83778 355438 5 (2001S) Medical Inc. ACIST Hand Acist 1 59941 030417 442532 295990 5 Control Medical (81059) Systems Inc ACIST Manifold Acist 1 02420 901394 300715 980520 5 (00716) Medical Systems Inc Tegaderm 4 x 4 3M 1 1626W 392463 862000 904252 5 (1626W) Medline Cath Medline 1 [id number] 706421 32106 882461 5 Pack ([id number]) DIAGNOSTIC Cardinal 1 CU1891 807939 50176 371406 3 0 Multipack 5Fr Health catheter set (UO4080) SHEATH 5FR Terumo 1 EQR085 805754 429821 421938 5 [place] (QRF866) EMERALD Guide Cardinal 1 502-455 778796 112080 670976 5 Wire (502-455) Health MULTIPACK Cardinal 1 551968 5 Pigtail 5 Fr Health catheter MULTIPACK JL Cardinal 1 854582 5 4.0 5Fr Health catheter MULTIPACK 3DRC Cardinal 1 071331 5 5Fr catheter Health SHEATH 6FR Terumo 1 VPI422 772284 219193 091905 4 0 [place] (NBC113) INFLATOR Merit Merit 1 WY8353 226605 872110 676392 1 5 NemeriX Medical (TL9013) CHOICE PT Aurora 1 [id number] 019597 461199 269843 5 Extra Support Scientific 182cm wire ([id number]) GUIDE 6FR Cardinal 1 14703083 435548 345530 800652 1 0 XBLAD 3.5 Health catheter (16228467) SHERRON RX 3.0 x Medtronic 1 [id number] 396444 1839389 080928 5 [id number] 15 stent ([id number]) EXOSEAL 6Fr Cardinal 1 EX600 366732 591473 714218 1 0 (EX600) Health Signature Audit [place] Stage Time Signature Unsigned Intra-Procedure 01/11/2019 Yuli Avila 10:33:30 AM RT(R) Signatures Monitor : Yuli Avila Signature : RT Date : Time : [address] [place] [address]
--- NOTE | ~2019-01-10 | ST ---
PATIENT:CHRISTOPHER COSTA MEDICAL RECORD: [id number] SEX: M LOCATION:D. D.211 ORDER #: ADMISSION DATE: 01/10/19 AGE OF PATIENT: 63 REFERRING PHYSICIAN: INTERPRETING PHYSICIAN: NIDA METCALF MD DATE OF SERVICE: 01/10/2019 PROCEDURE: Nuclear stress test. INDICATION: Angina and coronary artery disease. DESCRIPTION OF PROCEDURE: The patient was exercised on standard Mikey protocol, terminated due to severe chest pain at 8/10 scale with 28.2 mCi sestamibi injected at peak stress, 10 mCi used previously for rest images. FINDINGS: Gated SPECT reveals a preserved ejection fraction at 60% with good wall motioning and thickening and brightening throughout all segments. SPECT imaging: Cardiolite was used as myocardial perfusion agent. There are definite reversible changes anteroapically and septally. This includes the mid anterior, apical anterior, apex itself, apical septal, mid septal, and basal septal segments. The degree of reversibility is moderate. The amount of myocardium involved is moderate. OVERALL IMPRESSION: This is an intermediate risk abnormal nuclear stress test with reversible ischemia anteriorly, apically, and septally suggestive of hemodynamically significant coronary artery disease. We will proceed with coronary angiography as followup study. TRANSINT:[id number] Voice Confirmation ID: [id number] DOCUMENT ID: [id number] NIDA METCALF MD CC: [id number] DICTATION DATE: 01/11/19 0649 MACHINE SHORTHAND TEACHER: 01/11/19 0839 ADM IN [facility] [address] [id number]
--- NOTE | ~2019-01-10 | DS ---
PATIENT:CHRISTOPHER RUIZ :55 MEDICAL RECORD: [id number] DISCHARGE SUMMARY ADMISSION DATE: 01/10/19 DISCHARGE DATE: 01/11/19 DIAGNOSES: 1. PTCA and stent of LAD. 2. Unstable angina. 3. Coronary artery disease. 4. Hypertension. 5. Hyperlipidemia. 6. Chronic obstructive pulmonary disease. 7. Smoking. 8. Liy-tyvynlu-kmqvkpnbg diabetes. HISTORY AND HOSPITAL COURSE: Mr. Ruiz presents with unstable anginal symptomatology, found to have critical disease of the LAD, underwent successful PTCA and stent of the LAD, discharged home with the addition of aspirin and Plavix to his medical regimen. He will follow up with [facility] in 1 month. TRANSINT:[id number] Voice Confirmation ID: [id number] DOCUMENT ID: [id number] NIDA METCALF MD CC: [id number] DICTATION DATE: 01/11/19 1033 BIODIESEL PROCESSING TECHNICIAN: 01/11/19 2329 DIS IN 01/11/[address] [place] [address]
[2019-01-10 11:35] VITALS: BP 139/62
[2019-01-10 11:38] LABS: BASOPHILS 0.2 % (0-2); EOSINOPHILS 2.8 % (0-7); HEMATOCRIT 42.1 % (42.0-54.0); HEMOGLOBIN 14.3 g/dL (13.5-17.5); IMMATURE GRANULOCYTES 0.3 % (0-5); LYMPHOCYTES 31.2 % (15-50); MCH 31.3 pg (26.0-34.0); MCV 92.1 fL (80.0-100.0); MEAN PLATELET VOLUME 11.2 fL (7.4-10.4); MONOCYTES 9.9 % (2-11); NEUTROPHILS 55.6 % (40-80); PLATELET COUNT 225 10x3/uL (130-400); RBC 4.57 10x6/uL (4.20-6.10); RDW 15.3 % (11.5-14.5); WBC 6.4 10x3/uL (4.8-10.8)
[2019-01-10 11:42] VITALS: BP 101/60
[2019-01-10 11:52] LABS: INR 0.96 (0.85-1.17); PROTIME 12.2 SECONDS (11.6-15.0)
[2019-01-10 11:54] LABS: ALKALINE PHOSPHATASE 118 U/L (46-116); ALT (SGPT) 28 U/L (10-68); BILIRUBIN - TOTAL 0.27 mg/dL (0.2-1.3); CALC OSMOLALITY 286 mosm/kg (275-300); CALCIUM 9.3 mg/dL (8.5-10.1); CARBON DIOXIDE 24.8 mmol/L (21.0-32.0); CHLORIDE - SERUM 103 mmol/L (98-107); CREATININE - SERUM 1.2 mg/dL (0.6-1.3); PROTEIN - SERUM 7.3 g/dL (6.4-8.2); SODIUM 139 mmol/L (136-145); UREA NITROGEN 19 mg/dL (7-18); eGFR NON AFRICAN AMERICAN 65 mL/min (90-120)
[2019-01-10 11:57] LABS: GLUCOSE 225 mg/dL (74-106)
[2019-01-10 12:02] LABS: CREATINE KINASE 40 UL (21-232); PRO BNP 100 pg/mL (0-125); TROPONIN-I < 0.017 ng/mL (0.000-0.060)
[2019-01-10 12:54] VITALS: Ht 170.2 cm; Wt 65.9 kg
--- NOTE | 2019-01-10 14:58 | NUR ---
SCD'S REFUSED AT THIS TIME
--- NOTE | 2019-01-10 15:09 | NUR ---
ASSESS PATIENT FROM THE ER. TRIED TO PLACE TELEMETRY ON PATIENT. PATIENT REFUSED TO HAVE TELEMETRY AT THIS TIME. EDUCATED PATIENT OF THE IMPORTANCE OF TELEMETRY MONITORING AND THE PATIENT STILL REFUSED.
--- NOTE | 2019-01-10 17:15 | NUR ---
PATIENT RETURNED FROM TEST AND NURSE AGAIN ASKED IF SHE COULD PLACE TELEMETRY ON HIM AND HE SAID NO. AGAIN EXPLAINED THE IMPORTANCE OF THE TELEMETRY MONITORING AND HE SAID AFTER HEA ATE DINNER HE WOULD PUT IT ON BECAUSE IT WAS UNCOMFORTABLE.
--- NOTE | 2019-01-10 19:01 | NUR ---
RECIEVED UP IN BED WITH O2@ 2 LITERS PER N/C. RESP EVEN AND UNLABORED. REPORTED THAT PT REFUSES TELEMETRY. SPOKE WITH HIM AND EXPLAINED THE NECESSITY. PT AGREED TO WEAR TELEMETRY. TELEMETRY PUT IN PLACE. ALERT AND ORIENTED X4. UP AD RADHA. DENIES ANY NEEDS ATHER THAN A LG GLASS OF ICE FOR HIS SODA. ICE GIVEN .
[2019-01-10 20:00] VITALS: BP 122/56
[2019-01-10] MEDS ORDERED: SYMBICORT 80-10.2 GM INH (21:46)
[2019-01-10] MEDS ORDERED: PIOGLITAZONE15 MG PO (21:50)
[2019-01-11] VITALS: BP 113/63
[2019-01-11 04:30] VITALS: BP 116/53
[2019-01-11 06:12] LABS: BASOPHILS 0.2 % (0-2); EOSINOPHILS 2.9 % (0-7); HEMATOCRIT 41.3 % (42.0-54.0); IMMATURE GRANULOCYTES 0.3 % (0-5); LYMPHOCYTES 34.9 % (15-50); MCH 31.3 pg (26.0-34.0); MCHC 33.9 g/dL (31.0-37.0); MCV 92.4 fL (80.0-100.0); MEAN PLATELET VOLUME 11.4 fL (7.4-10.4); MONOCYTES 12.8 % (2-11); NEUTROPHILS 48.9 % (40-80); PLATELET COUNT 227 10x3/uL (130-400); RBC 4.47 10x6/uL (4.20-6.10); RDW 15.3 % (11.5-14.5); WBC 6.5 10x3/uL (4.8-10.8)
[2019-01-11 06:18] LABS: ALBUMIN 3.7 g/dL (3.4-5.0); ANION GAP 11.6 mmol/L (8-16); BILIRUBIN - TOTAL 0.28 mg/dL (0.2-1.3); CALCIUM 8.9 mg/dL (8.5-10.1); CARBON DIOXIDE 29.1 mmol/L (21.0-32.0); CREATININE - SERUM 1.1 mg/dL (0.6-1.3); POTASSIUM - SERUM 3.7 mmol/L (3.5-5.1); PROTEIN - SERUM 6.7 g/dL (6.4-8.2)
--- NOTE | 2019-01-11 07:15 | NUR ---
RECEIVED PT IN BED AAOX4 RESP UNLABORED DENIES ANY DISCOMFORT OR NEEDS AT THIS TIME WILL CONTINUE TO MONITOR
[2019-01-11 09:18] VITALS: BP 119/61
--- NOTE | 2019-01-11 10:37 | NUR ---
RECEIVED CALL PT BEING DISCHARGED FROM [facility] FAMILY AND ALL PERSONAL BELONGINGS CARRIED UP TO [facility] B[facility] 3
--- NOTE | 2019-01-11 11:02 | NUR ---
PT ALERT, DENIES ANY C/O CHEST PAIN OR NAUSEA. DRESSING CDI RIGHT GROIN, PEDAL PULSES 2+, HOB IS FLAT. RESP WTIH EASE, FAMILY AT BEDSIDE. CALL LGITH IN REACH. PT REQUESTED PO FLUIDS AND THIS SERVED. BED LOCKED AND LOW.
--- NOTE | 2019-01-11 11:12 | NUR ---
HOB FLAT, AT BEDSIDE, BABAR SOPS F PO FLUIDS WITH NO NAUSEA. NSR, RATE IS 67, DENIES ANY C/O CHEST PAIN. BP IS 124/60. DRESSING CDI, PEDAL PULSES 2+
[2019-01-11] MEDS ORDERED: PLAVIX75 MG PO (11:17)
--- NOTE | 2019-01-11 11:32 | NUR ---
PT ALERT, DENIES ANY C/O. VSS, DRESSING CDI, PEDAL PULSES PALPABLE.
--- NOTE | 2019-01-11 12:35 | NUR ---
PT HAS BABAR ICE CREAM AND JELLO WITH NO C/O. DRESSING CDI, PEDAL PULSES PALPABLE. HOB IS FLAT. PT ALERT AND DENIES ANY C/O.
--- NOTE | 2019-01-11 13:15 | NUR ---
1250 PT IS ALERT, DENIES ANY C/O. STATES READY TO SIT UP WHEN IT IS TIME. PT BABAR APPLESAUCE WITH NO NAUSEA. PO FLUIDS IN REACH, HOB IS FLAT. DRESSING CDI, AREA IS SOFT AND NONTENDER. BP CUFF OUT OF POSTIION AND THIS REPOSITIONED. NSR, RATE IS 65, BP 96/48. PT DENIES NEEDS AT THIS TIME. CALL LIGHT IN REACH.
--- NOTE | 2019-01-11 13:39 | NUR ---
PT IS ALERT, DENIES ANY C/O PAIN OR NAUSEA. HOB ELEVATED 30 DEGREES AND SANDWICH SERVED. DRESSING IS CDI, PEDAL PULSES PALPABLE.
--- NOTE | 2019-01-11 14:09 | NUR ---
DRESSING REMAINS CDI TO RIGHT GROIN, PEDAL PULSES PALPABLE. NSR, DENIES ANY C/O PAIN OR NAUSEA. DC INSTRUCTIONS REVIEWED WITH PT AND WHO VERBALIZE UNDERSTANDING. PT VERBALIZES UNDERSTANDING OF STARTING PLAVIX TABLETS TOMORROW.
--- NOTE | 2019-01-11 14:52 | NUR ---
1425 PT IS ALERT AND DENIES ANY C/O. DRESSING REMAINS CDI TO RIGHT GROIN, AREA IS SOFT AND NONTENDER. PEDAL PULSES PALPABLE. IV DC'D WITH CATH INTACT AND PT IS DRESSING FOR DC TO HOME WITH ASSIST. 1440 PT HAS DRESSED FOR DC TO HOME. HAS VOIDED QS. DENIES ANY C/O. PTT ESCORTED TO PRIVATE AUTO VIA WC BY NURSE WITH DRIVING HIM HOME.
== END 2019-01-11 14:40 | disposition home or self-care (01) ==
LOC: D.ER 11:06 → D.M2 12:11 → OBSVTIME 12:11 → D.CLR 01-11 11:34
PROVIDERS: Family Medicine; Family Medicine Adult Medicine; ADMIT Internal Medicine Interventional Cardiology; ATTEND Internal Medicine Interventional Cardiology
DX: I25.110 Atherosclerotic heart disease of native coronary artery with unstable angina pectoris (principal); I10 Essential (primary) hypertension; E78.5 Hyperlipidemia, unspecified; J44.9 Chronic obstructive pulmonary disease, unspecified; F17.200 Nicotine dependence, unspecified, uncomplicated; E11.9 Type 2 diabetes mellitus without complications
CPT/HCPCS: 93458; C9600

== ENCOUNTER → 2019-06-16 07:32 | Outpatient (CLI) | payer OTHER ==
[2019-01-10 12:54] VITALS: BMI 22.7
[~2019-06-16 07:32] MED LIST changes: +SYMBICORT 80-10.2 GM INH
== END | disposition home or self-care (01) ==
LOC: D.CT 07:32
PROVIDERS: ATTEND Radiology Diagnostic Radiology
DX: N28.89 Other specified disorders of kidney and ureter (principal)

== ENCOUNTER → 2020-01-25 09:46 | Outpatient (CLI) | payer OTHER ==
[2019-08-14 02:10] VITALS: BMI 24.3
[~2020-01-25 09:46] MED LIST changes: +BACLOFEN20 M1 PO
== END | disposition home or self-care (01) ==
LOC: D.CT 09:46
PROVIDERS: ATTEND Radiology Diagnostic Radiology
DX: N28.89 Other specified disorders of kidney and ureter (principal)

== ENCOUNTER 2020-04-21 03:49 | Emergency (ER) | payer OTHER ==
[~2020-04-21] VITALS: Ht 170.2 cm; Wt 71.7 kg
[2020-04-21 04:09] VITALS: Ht 170.2 cm; Wt 71.7 kg
[2020-04-21 05:10] LABS: BASOPHILS 0.3 % (0-2); EOSINOPHILS 2.1 % (0-7); HEMATOCRIT 41.7 % (42.0-54.0); HEMOGLOBIN 13.6 g/dL (13.5-17.5); IMMATURE GRANULOCYTES 0.5 % (0-5); LYMPHOCYTES 22.4 % (15-50); MCH 30.9 pg (26.0-34.0); MCHC 32.6 g/dL (31.0-37.0); MCV 94.8 fL (80.0-100.0); MONOCYTES 8.6 % (2-11); NEUTROPHILS 66.1 % (40-80); PLATELET COUNT 255 10x3/uL (130-400); RDW 15.4 % (11.5-14.5); WBC 6.3 10x3/uL (4.8-10.8)
[2020-04-21 05:23] LABS: CALC OSMOLALITY 286 mosm/kg (275-300); CALCIUM 8.8 mg/dL (8.5-10.1); CARBON DIOXIDE 24.7 mmol/L (21.0-32.0); CHLORIDE - SERUM 104 mmol/L (98-107); CREATININE - SERUM 1.3 mg/dL (0.6-1.3); POTASSIUM - SERUM 4.4 mmol/L (3.5-5.1); SODIUM 141 mmol/L (136-145); UREA NITROGEN 22 mg/dL (7-18); eGFR NON AFRICAN AMERICAN 59 mL/min (90-120)
[2020-04-21 05:24] LABS: GLUCOSE 158 mg/dL (74-106)
[2020-04-21 05:39] LABS: APTT 27.9 SECONDS (22.8-39.4); INR 0.88 (0.85-1.17); PROTIME 11.9 SECONDS (11.6-15.0)
[2020-04-21 05:43] LABS: ALBUMIN 3.7 g/dL (3.4-5.0); ALKALINE PHOSPHATASE 89 U/L (30-120); ALT (SGPT) 22 U/L (10-68); BILIRUBIN - TOTAL 0.28 mg/dL (0.2-1.3); C-REACTIVE PROTEIN 2.9 mg/dL (0.0-0.9); CKMB 2.3 U/L (0.0-3.6); CREATINE KINASE 67 UL (21-232); FERRITIN 84 ng/mL (3-244); PRO BNP 105 pg/mL (0-125); PROTEIN - SERUM 7.1 g/dL (6.4-8.2)
[2020-04-21 05:44] LABS: TROPONIN-I < 0.017 ng/mL (0.000-0.060)
[2020-04-21] MEDS ORDERED: ZPAK PO (06:19)
[2020-04-21 06:33] VITALS: BP 119/60
== END 2020-04-21 06:34 | disposition home or self-care (01) ==
LOC: D.ER 03:49
PROVIDERS: Family Medicine
DX: B34.9 Viral infection, unspecified (principal); J44.9 Chronic obstructive pulmonary disease, unspecified; Z20.828 Contact with and (suspected) exposure to other viral communicable diseases; E11.9 Type 2 diabetes mellitus without complications; Z79.84 Long term (current) use of oral hypoglycemic drugs; R06.02 Shortness of breath

== ENCOUNTER → 2020-09-24 10:22 | Outpatient (CLI) | payer OTHER ==
[2020-04-21 04:09] VITALS: BMI 24.3
[~2020-09-24 10:22] MED LIST changes: +ZPAK PO
--- NOTE | 2020-09-26 10:02 | EC ---
PATIENT:CHRISTOPHER COSTA DATE OF SERVICE: 09/24/20 SEX: M MEDICAL RECORD: [id number] DATE OF : 55 [facility] AGE OF PATIENT: 65 ADMISSION DATE: 09/24/20 REFERRING PHYSICIAN: INTERPRETING PHYSICIAN: MARILOU QUICK MD ECHOCARDIOGRAM REPORT ECHO CHARGES 4 ECHO COMPLETE Date: 09/24/20 CLINICAL DIAGNOSIS: CAD/MITRAL REGURG/ EF ECHOCARDIOGRAPHIC MEASUREMENTS (adult normal given) AC root (d.<3.7cm) 3.4 cm LV Septum d (<1.2 cm> 1.4 cm Valve Excursion 1.2 cm LV Septum (systole) 1.5 cm Left Atria (s.<4.0cm> 3.9 cm LVPW d(<1.2cm) 1.4 cm RV (d.<2.3cm) 3.7 cm LVPW (sytole) 1.9 cm LV diastole(<5.6CM) 4.8 cm MV E-F(>70mm/sec) cm LV systole 3.4 cm LVOT Diameter 1.7 cm MV exc.(>10mm) 2.0 cm Est.ejection fraction (50-75%) % DOPPLER: LVIT cm/sec A 77.0 cm/sec E 89.0 cm/sec LA cm/sec RVSP 36 mmHg LVOT 102 cm/sec AOP1/2T m/s Asc. Ao 135 cm/sec RVOT 73 cm/sec RA cm/sec PA 105 cm/sec AV Gradient Peak 7.25 mmHg AV Mean 4.06 mmHg AV Area 2.0 cm MV Gradient Peak 3.57 mmHg MV Mean 1.43 mmHg MV Area cm COMMENTS: Humane Agent: 2 MARY ALICE AMEZQUITA Sleeve Maker: 3 Dr. Mariscal TAPE# PACS Pericardial Effusion N DATE OF SERVICE: Adequate 2D, color-flow imaging, spectral Doppler, and M-Mode FINDINGS: LVH is present. LV internal dimensions are normal. Wall motion is normal. EF is greater than or equal to 55%. Aortic valve is tricuspid. No evidence of stenosis by Doppler interrogation. Left atrium is normal at 3.9 cm. Mitral valve shows no prolapse. Trace MR. Right side is grossly normal. Mild TR. ECHOCARDIOGRAM REPORT [id number] CHRISTOPHER COSTA TRANSINT:[id number] Voice Confirmation ID: [id number] DOCUMENT ID: [id number] MARILOU QUICK MD at 1002 CC: [id number] DICTATION DATE: 09/25/20 1522 CATARACT LENS GENERATOR: 09/25/20 2257 [facility] CLI 09/24/[id number] [id number]
== END | disposition home or self-care (01) ==
LOC: D.HCCECHO 09-20 10:30
PROVIDERS: ATTEND Internal Medicine Interventional Cardiology
DX: I25.10 Atherosclerotic heart disease of native coronary artery without angina pectoris (principal)